=== PATIENT | male | born 1990 | race Caucasian/White ===

== ENCOUNTER 2016-08-16 15:09 | Emergency (ER) | payer MEDICAID ==
[~2016-08-16] VITALS: Ht 185.4 cm; Wt 84.4 kg
[2016-08-16 16:41] LABS: Basophils # (auto) 0 uL; Basophils % (auto) 0.4 % (0.0-2.0); Eosinophils # (auto) 0.2 uL; Eosinophils % (auto) 3.3 % (0.0-7.0); Hematocrit 46.4 % (41.0-53.0); Hemoglobin 15.4 g/dL (13.5-17.5); Lymphocytes # (auto) 2.6 uL; Lymphocytes % (auto) 33.9 % (10.0-50.0); Mean Corpuscular Hgb Conc. 33.3 g/dL (32.0-36.0); Mean Corpuscular Volume 93.3 fL (80.0-100.0); Mean Platelet Volume 9.1 fL (7.4-10.4); Monocytes # (auto) 0.7 uL; Monocytes % (auto) 9.7 % (0.0-12.0); Neutrophils % (auto) 52.7 % (37.0-80.0); Platelet Count (auto) 356 10^3/uL (140-450); Red Cell Distribution Width 12.9 % (11.6-16.0); White Blood Cell 7.6 10^3/uL (4.4-10.8)
[2016-08-16 16:44] LABS: Albumin 3.5 g/dL (3.4-5.0); Anion Gap 8 (5-15); Aspartate Aminotransferase 9 U/L (15-37); BUN/Creatinine Ratio 15.3; Blood Urea Nitrogen 13 mg/dL (7-18); Calcium 9.2 mg/dL (8.5-10.1); Carbon Dioxide 30 mmol/L (21-32); Chloride 100 mmol/L (98-107); GFR African American 138 mL/min; GFR Non-African American 114 mL/min; Glucose 81 mg/dL (74-106); Potassium 3.6 mmol/L (3.5-5.1); Sodium 138 mmol/L (136-145)
[2016-08-16 16:49] LABS: Alkaline Phosphatase 66 U/L (45-117); Bilirubin, Total 0.3 mg/dL (0.2-1.0); Total Protein 7.9 g/dL (6.4-8.2)
[2016-08-16] MEDS ORDERED: PANTOPRAZOLE SODIUM 40 MG/10 ML VIAL IV STA (20:44)
[2016-08-16] MEDS ORDERED: ONDANSETRON HCL 4 MG/2 ML VIAL IV ONE (20:45)
[2016-08-16 21:22] LABS: Amylase 31 U/L (25-115)
[2016-08-16] MEDS ORDERED: DONNATAL 5ml ORAL Elix (BELLADONNA ALK-PHENOBARB) PO ONE (23:00)
[2016-08-16] MEDS ORDERED: LIDOCAINE VISCOUS 2% 15ML UD PO ONE (23:00)
[2016-08-16] MEDS ORDERED: ALUM & MAG HYDROX-SIMETH LIQ(MAALOX) 30 ML PO ONE (23:00)
[2016-08-17] MEDS ORDERED: IOHEXOL 300 MG/ML 100ML BOTTLE IJ ONE (00:35)
[2016-08-17 02:07] VITALS: BP 128/96
== END 2016-08-17 02:26 | disposition home or self-care (01) ==
LOC: ER 15:14
DX: R10.31 Right lower quadrant pain (principal); F17.210 Nicotine dependence, cigarettes, uncomplicated
CPT/HCPCS: 36415; 71020; 74177; 76705; 80053; 82150; 83690; 84484; 85025; 93005; 94761; 96374; 96375; 99285; C9113; G0434; J2405; Q9967

== ENCOUNTER 2018-09-01 19:09 | Emergency (ER) | payer MEDICAID ==
[~2018-09-01] VITALS: Ht 193 cm; Wt 90.7 kg
[2018-09-01 19:13] VITALS: BP 138/95
== END 2018-09-01 19:58 | disposition home or self-care (01) ==
LOC: ER 19:13
DX: Z13.39 Encounter for screening examination for other mental health and behavioral disorders (principal); F17.210 Nicotine dependence, cigarettes, uncomplicated

== ENCOUNTER 2020-09-30 05:17 | Emergency (ER) | payer MEDICAID ==
[~2020-09-30] VITALS: Ht 182.9 cm; Wt 83.9 kg
[2020-09-30] MEDS ORDERED: SODIUM CHLORIDE 0.9% 1,000 ML IV ONE ×2 (06:00→06:45)
[2020-09-30] MEDS ORDERED: ACETAMINOPHEN 325 MG TAB PO ONE ×2 (06:15→07:00)
[2020-09-30] MEDS ORDERED: ONDANSETRON HCL 4 MG/2 ML VIAL IV ONE ×2 (06:15→07:00)
[2020-09-30 07:14] LABS: Albumin 3.5 g/dL (3.4-5.0); Calcium 8.4 mg/dL (8.5-10.1); Potassium 4.2 mmol/L (3.5-5.1)
[2020-09-30 07:17] LABS: BUN/Creatinine Ratio 11.2; Bilirubin, Total 0.5 mg/dL (0.2-1.0); Hematocrit 43.5 % (41.0-53.0); Hemoglobin 14.8 g/dL (13.5-17.5); Mean Corpuscular Hemoglobin 31.8 pg (28.0-32.0); Mean Corpuscular Volume 93.6 fL (80.0-100.0); Platelet Count (auto) 271 10^3/uL (140-450); Red Blood Cells 4.64 10^6/uL (4.5-5.90); Red Cell Distribution Width 13.2 % (11.8-14.3); Total Protein 7.3 g/dL (6.4-8.2); White Blood Cell 21.8 10^3/uL (4.4-10.8)
[2020-09-30 07:23] LABS: Basophils % (manual) 0 (0.0-2.0); Blast Cells 0; Metamyelocytes % 0; Myelocytes % 0; Promyelocytes % 0
[2020-09-30 07:42] LABS: Urine Bacteria NONE SEEN /hpf (None Seen); Urine Blood Negative /uL (Negative); Urine Specific Gravity 1.008 (1.001-1.035); Urine WBC None Seen /hpf (0 - 3)
[2020-09-30 08:09] LABS: Alcohol, Urine < 3.0 mg/dL (0-10); Amphetamine Screen, Urine NEGATIVE (NEGATIVE); Barbiturate Scree,Urine NEGATIVE (NEGATIVE); Benzodiazephine Screen, Urine NEGATIVE (NEGATIVE); Cannabinoid Screen, Urine NEGATIVE (NEGATIVE); Cocaine Screen, Urine NEGATIVE (NEGATIVE); Opiate Scree,Urine NEGATIVE (NEGATIVE); Phencyclidine Screen, Urine NEGATIVE (NEGATIVE)
[2020-09-30 08:18] LABS: Band Neutrophils % (manual) 6; Eosinophils % (manual) 1 (0-7); Lymphocytes % (manual) 9 (10.0-50.0); Monocytes % (manual) 9 (0-12); Reactive Lymphocytes 1
[2020-09-30] MEDS ORDERED: cefTRIAXone 1GM/50ML D5W 50 ML IV ONE (08:30)
[2020-09-30 09:52] VITALS: BP 112/79
[2020-09-30] MEDS ORDERED: KETOROLAC TROMETH 30 MG/ML 1ML VIAL IV ONE (10:00)
== END 2020-09-30 10:41 | disposition home or self-care (01) ==
LOC: ER 05:17
DX: B34.9 Viral infection, unspecified (principal); K02.9 Dental caries, unspecified; D72.829 Elevated white blood cell count, unspecified; N20.0 Calculus of kidney; F17.210 Nicotine dependence, cigarettes, uncomplicated
CPT/HCPCS: 36415; 71045; 74176; 80053; 80307; 81001; 83605; 85007; 85027; 96361; 96365; 96375; 99285; J0696; J1885; J2405; J7030

== ENCOUNTER 2021-08-06 12:53 | Emergency (ER) | payer MEDICAID ==
[~2021-08-06] VITALS: Ht 185.4 cm; Wt 90.7 kg
[2021-08-06 14:16] VITALS: BP 133/80
[2021-08-06] MEDS ORDERED: IBUP800T27 PO (14:23)
[2021-08-06] MEDS ORDERED: AMOX-277 PO (14:23)
[2021-08-06] MEDS ORDERED: KETOROLAC TROMETH 60MG/2ML VIAL IM ONE (14:30)
== END 2021-08-06 14:55 | disposition home or self-care (01) ==
LOC: EDBD 12:53 → ER 12:53
DX: S02.40DA Maxillary fracture, left side, initial encounter for closed fracture (principal); F17.210 Nicotine dependence, cigarettes, uncomplicated; Z79.1 Long term (current) use of non-steroidal anti-inflammatories (NSAID); Z79.2 Long term (current) use of antibiotics; Y04.2XXA Assault by strike against or bumped into by another person, initial encounter; Y93.89 Activity, other specified; Y92.89 Other specified places as the place of occurrence of the external cause; Y99.8 Other external cause status
CPT/HCPCS: 70486; 96372; 99284; J1885

== ENCOUNTER 2022-01-15 17:04 | Emergency (ER) | payer MEDICAID ==
[~2022-01-15] VITALS: Ht 172.7 cm; Wt 63.6 kg
[~2022-01-15 17:04] MED LIST: AMOX-277 PO; IBUP800T27 PO
[2022-01-15] MEDS ORDERED: KETOROLAC TROMETH 60MG/2ML VIAL IM ONE (20:45)
[2022-01-15 20:48] VITALS: BP 167/94
[2022-01-15 23:37] LABS: Basophils # (auto) 0 10 ^3/uL (0-0.2); Basophils % (auto) 0.1 % (0.0-2.0); Eosinophils # (auto) 0 10 ^3/uL (0-0.8); Hematocrit 46.6 % (41.0-53.0); Hemoglobin 15.3 g/dL (13.5-17.5); Lymphocytes # (auto) 1.6 10 ^3/uL (0.4-5.4); Lymphocytes % (auto) 9.6 % (10.0-50.0); Mean Corpuscular Hemoglobin 30.6 pg (28.0-32.0); Mean Corpuscular Hgb Conc. 32.9 g/dL (32.0-36.0); Mean Corpuscular Volume 92.9 fL (80.0-100.0); Monocytes # (auto) 1.4 10 ^3/uL (0-1.3); Monocytes % (auto) 8.5 % (0.0-12.0); Neutrophils # (auto) 13.4 10 ^3/uL (1.6-8.6); Neutrophils % (auto) 81.8 % (37.0-80.0); Red Blood Cells 5.02 10^6/uL (4.5-5.90); Red Cell Distribution Width 13.3 % (11.8-14.3); White Blood Cell 16.4 10^3/uL (4.4-10.8)
[2022-01-15 23:56] LABS: BUN/Creatinine Ratio 19.1
[2022-01-16 00:05] LABS: Bilirubin, Total 0.7 mg/dL (0.2-1.0); Total Protein 7.6 g/dL (6.4-8.2)
[2022-01-16] MEDS ORDERED: SILVER SULFADIAZINE 1 % TOPICAL CREAM 50GM TOP ONE (01:15)
[2022-01-16] MEDS ORDERED: cefTRIAXone SOD 1,000 MG VL IM ONE (01:15)
[2022-01-16] MEDS ORDERED: AMOX-277 PO (02:44)
[2022-01-16] MEDS ORDERED: IBUP800T26 PO (02:44)
== END 2022-01-16 02:57 | disposition home or self-care (01) ==
LOC: ER 17:04 → EDBD 17:04 → ER 01-16 02:53
DX: S42.402A Unspecified fracture of lower end of left humerus, initial encounter for closed fracture (principal); T22.022A Burn of unspecified degree of left elbow, initial encounter; T23.072A Burn of unspecified degree of left wrist, initial encounter; F17.210 Nicotine dependence, cigarettes, uncomplicated; Z79.1 Long term (current) use of non-steroidal anti-inflammatories (NSAID); Z79.2 Long term (current) use of antibiotics; X58.XXXA Exposure to other specified factors, initial encounter; Y93.89 Activity, other specified; Y92.89 Other specified places as the place of occurrence of the external cause; Y99.8 Other external cause status
CPT/HCPCS: 16000; 29105; 36415; 73030; 73070; 73110; 73130; 80053; 82550; 85025; 96372; 99284; J0696; J1885

== ENCOUNTER 2022-01-17 11:44 | Emergency (ER) | payer MEDICAID ==
[~2022-01-17] VITALS: Ht 182.9 cm; Wt 185.0 kg
[~2022-01-17 11:44] MED LIST changes: +IBUP800T26 PO
[2022-01-17 12:40] LABS: Basophils # (auto) 0.1 10 ^3/uL (0-0.2); Basophils % (auto) 0.5 % (0.0-2.0); Eosinophils # (auto) 0.3 10 ^3/uL (0-0.8); Eosinophils % (auto) 2.2 % (0.0-7.0); Hematocrit 46.3 % (41.0-53.0); Hemoglobin 15.5 g/dL (13.5-17.5); Lymphocytes # (auto) 2.7 10 ^3/uL (0.4-5.4); Lymphocytes % (auto) 23.4 % (10.0-50.0); Mean Corpuscular Hemoglobin 30.8 pg (28.0-32.0); Mean Corpuscular Hgb Conc. 33.5 g/dL (32.0-36.0); Monocytes % (auto) 8.5 % (0.0-12.0); Neutrophils # (auto) 7.7 10 ^3/uL (1.6-8.6); Neutrophils % (auto) 65.4 % (37.0-80.0); Red Blood Cells 5.03 10^6/uL (4.5-5.90); Red Cell Distribution Width 13.5 % (11.8-14.3); White Blood Cell 11.7 10^3/uL (4.4-10.8)
[2022-01-17 12:54] LABS: Potassium 3.5 mmol/L (3.5-5.1)
[2022-01-17 13:06] LABS: Albumin 3.6 g/dL (3.4-5.0); BUN/Creatinine Ratio 13.7; Bilirubin, Total 0.5 mg/dL (0.2-1.0); Calcium 8.6 mg/dL (8.5-10.1); Total Protein 7.3 g/dL (6.4-8.2)
[2022-01-17 13:14] LABS: Urine Bacteria NONE SEEN /hpf (None Seen); Urine Blood Negative /uL (Negative); Urine Specific Gravity 1.007 (1.001-1.035); Urine WBC 2 /hpf (0 - 3)
[2022-01-17] MEDS ORDERED: IOHEXOL 350 MG/ML 100ML IJ ONE (15:17)
[2022-01-17 17:54] VITALS: BP 138/82
== END 2022-01-17 17:56 | disposition home or self-care (01) ==
LOC: ER 11:44
DX: R07.89 Other chest pain (principal); E07.9 Disorder of thyroid, unspecified; F17.210 Nicotine dependence, cigarettes, uncomplicated; Z79.1 Long term (current) use of non-steroidal anti-inflammatories (NSAID); Z79.2 Long term (current) use of antibiotics
CPT/HCPCS: 36415; 71045; 80053; 81001; 84443; 84484; 85025; 93005; 99285; Q9967

== ENCOUNTER 2023-05-04 15:50 | Emergency (ER) | payer MEDICAID ==
[~2023-05-04] VITALS: Ht 182.9 cm; Wt 87.1 kg
[~2023-05-04 15:50] MED LIST changes: -AMOX-277 PO; +AMOX875T4 PO; +IBUP-1455 PO; +IBUP-1456 PO; -IBUP800T26 PO; -IBUP800T27 PO
[2023-05-04 16:22] VITALS: BP 109/70; PULSE 79; RESP 18; O2SAT 98
== END 2023-05-04 23:49 | disposition left against medical advice (07) ==
LOC: ER 15:50
DX: K62.89 Other specified diseases of anus and rectum (principal); Z53.21 Procedure and treatment not carried out due to patient leaving prior to being seen by health care provider